=== PATIENT | male | born 1995 | race Caucasian/White ===

== ENCOUNTER 2022-02-07 09:46 | Emergency (ER) | payer MEDICAID ==
[~2022-02-07] VITALS: Ht 170.2 cm; Wt 70.3 kg
--- NOTE | 2022-02-07 09:47 | NUR ---
Pt to [facility] re medical clearance per law enforcement.
--- NOTE | 2022-02-07 09:50 | NUR ---
Pt BIB [employer] re medical clearance. A/O x 3. Denies pain or any medical complaints. Awaiting MD paige.
--- NOTE | 2022-02-07 09:52 | NUR ---
Dr [facility]
[2022-02-07 09:55] VITALS: BP_SYST 101
[2022-02-07 10:05] VITALS: BP_SYST 101
--- NOTE | 2022-02-07 10:05 | NUR ---
Officer given written and verbal discharge instructions and verbalizes understanding. ER MD Eden discussed with patient the results and treatment provided. Patient in stable condition. ID arm band removed. Patient educated on pain management and to follow up with PMD. Pain scale 0/10. Opportunity for questions provided and answered. Medication side effect fact sheet provided.
== END 2022-02-07 10:05 | disposition home or self-care (01) ==
LOC: SED 09:46
DX: Z04.1 Encounter for examination and observation following transport accident (principal); V49.49XA Driver injured in collision with other motor vehicles in traffic accident, initial encounter; Y93.89 Activity, other specified; Y92.89 Other specified places as the place of occurrence of the external cause; Y99.8 Other external cause status
CPT/HCPCS: 99283